=== PATIENT | male | born 1965 | race Caucasian/White ===

== ENCOUNTER 2018-04-30 10:59 | Inpatient (IN) | payer MEDICAID, OTHER ==
[~2018-04-30] VITALS: Ht 172.7 cm; Wt 67.6 kg
[2018-04-30 12:02] LABS: Basophils # (auto) 0 uL; Basophils % (auto) 0.9 % (0.0-2.0); Eosinophils # (auto) 0 uL; Hematocrit 43.6 % (41.0-53.0); Hemoglobin 14.6 g/dL (13.5-17.5); Lymphocytes # (auto) 0.6 uL; Lymphocytes % (auto) 18.4 % (10.0-50.0); Mean Corpuscular Hgb Conc. 33.6 g/dL (32.0-36.0); Mean Corpuscular Volume 89.3 fL (80.0-100.0); Monocytes # (auto) 0.3 uL; Monocytes % (auto) 7.4 % (0.0-12.0); Neutrophils # (auto) 2.5 uL; Neutrophils % (auto) 73.3 % (37.0-80.0); Nucleated Red Blood Cells % 0.1 %; Platelet Count (auto) 76 10^3/uL (140-450); Red Blood Cells 4.88 10^6/uL (4.5-5.90); Red Cell Distribution Width 13.5 % (11.8-14.3); White Blood Cell 3.5 10^3/uL (4.4-10.8)
[2018-04-30 12:34] LABS: Alanine Aminotransferase 61 U/L (16-61); Albumin 2.5 g/dL (3.4-5.0); Alkaline Phosphatase 62 U/L (45-117); Anion Gap 10 (5-15); Aspartate Aminotransferase 70 U/L (15-37); BUN/Creatinine Ratio 15.2; Blood Urea Nitrogen 17 mg/dL (7-18); Calcium 7.1 mg/dL (8.5-10.1); Carbon Dioxide 20 mmol/L (21-32); Chloride 99 mmol/L (98-107); GFR African American 88 mL/min; GFR Non-African American 73 mL/min; Glucose 86 mg/dL (74-106); Sodium 129 mmol/L (136-145); Total Protein 5.9 g/dL (6.4-8.2)
[2018-04-30 12:40] LABS: INR 1.1 (0.9-1.15); Partial Thromboplastin Time 30.6 sec (23.78-33.04); Prothrombin Time 11.7 sec (9.27-12.13)
[2018-04-30 12:43] LABS: Potassium 2.9 mmol/L (3.5-5.1)
[2018-04-30] MEDS ORDERED: POTASSIUM CHL 20 Meq TABLET PO ONE ×2 (13:00)
[2018-04-30] MEDS ORDERED: SODIUM CHLORIDE 0.9% 1,000 ML IV ONE (13:45)
[2018-04-30] MEDS ORDERED: MORPHINE SULFATE 4 MG/ML SYR/VIAL IV PRN (15:15)
[2018-04-30] MEDS ORDERED: LACTULOSE 20Gm/30ML SOLN PO PRN (15:15)
[2018-04-30] MEDS ORDERED: KETOROLAC TROMETH 30 MG/ML 1ML VIAL IV PRN (15:15)
[2018-04-30] MEDS ORDERED: ONDANSETRON HCL 4 MG/2 ML VIAL IV PRN (15:15)
[2018-04-30] MEDS ORDERED: LORazepam 0.5 MG TAB PO PRN (15:15)
[2018-04-30] MEDS ORDERED: LABETALOL HCL 5 MG/ML ML 20ML VIAL IV PRN (15:15)
[2018-04-30] MEDS ORDERED: NITROGLYCERIN 0.4 MG SL TAB SL PRN (15:15)
[2018-04-30] MEDS: SOD CHL 0.9%/ KCL 20MEQ 1,000 ML IV SCH (15:34)
[2018-04-30 16:36] LABS: Urine Bacteria NONE SEEN /hpf (None Seen); Urine Blood 2+ /uL (Negative); Urine Mucus FEW (None Seen); Urine WBC 2 /hpf (0 - 3)
[2018-04-30 16:48] VITALS: BP 115/59
[2018-04-30 16:59] LABS: Alcohol, Urine < 3.0 mg/dL (0-5); Amphetamine Screen, Urine POSITIVE (NEGATIVE); Barbiturate Scree,Urine NEGATIVE (NEGATIVE); Benzodiazephine Screen, Urine NEGATIVE (NEGATIVE); Cannabinoid Screen, Urine NEGATIVE (NEGATIVE); Cocaine Screen, Urine NEGATIVE (NEGATIVE); Opiate Scree,Urine NEGATIVE (NEGATIVE); Phencyclidine Screen, Urine NEGATIVE (NEGATIVE)
[2018-04-30 17:00] VITALS: BP 115/59
[2018-04-30] MEDS ORDERED: LORazepam 2MG/ML-1ML VIAL IV PRN (17:30)
[2018-04-30] MEDS: THIAMINE INJ 100 MG, MULTIPLE VITAMIN 10 ML, FOLIC ACID 1 MG, MAGNESIUM SULF SDV 50% 8 ... IV SCH ×5 (18:00)
[2018-04-30] MEDS: ACETAMINOPHEN 500 MG TAB PO PRN (21:18)
[2018-04-30 22:00] VITALS: BP 118/53
[2018-05-01] MEDS: SOD CHL 0.9%/ KCL 20MEQ 1,000 ML IV SCH ×2 (01:15→11:15)
[2018-05-01 04:58] VITALS: BP 111/53
[2018-05-01 06:25] LABS: Basophils # (auto) 0 uL; Eosinophils # (auto) 0 uL; Hematocrit 41.2 % (41.0-53.0); Hemoglobin 14.6 g/dL (13.5-17.5); Lymphocytes # (auto) 0.7 uL; Lymphocytes % (auto) 15.2 % (10.0-50.0); Mean Corpuscular Hemoglobin 30.8 pg (28.0-32.0); Mean Corpuscular Hgb Conc. 35.3 g/dL (32.0-36.0); Mean Corpuscular Volume 87.2 fL (80.0-100.0); Monocytes # (auto) 0.3 uL; Monocytes % (auto) 6.3 % (0.0-12.0); Neutrophils # (auto) 3.3 uL; Neutrophils % (auto) 77.5 % (37.0-80.0); Nucleated Red Blood Cells % 0.1 %; Platelet Count (auto) 68 10^3/uL (140-450); Red Blood Cells 4.72 10^6/uL (4.5-5.90); Red Cell Distribution Width 13.2 % (11.8-14.3); White Blood Cell 4.3 10^3/uL (4.4-10.8)
[2018-05-01 06:48] LABS: Albumin 2.5 g/dL (3.4-5.0); BUN/Creatinine Ratio 15.5; Bilirubin, Total 0.9 mg/dL (0.2-1.0); Calcium 7.4 mg/dL (8.5-10.1); Potassium 3.4 mmol/L (3.5-5.1); Total Protein 5.8 g/dL (6.4-8.2)
[2018-05-01 09:00] VITALS: BP 115/53
[2018-05-01] MEDS ORDERED: ENOXAPARIN SOD 40 MG/0.4 ML SYRINGE SC SCH (10:00)
[2018-05-01] MEDS ORDERED: POTASSIUM CHLORIDE 8 MEQ TAB PO ONE (10:15)
[2018-05-01] MEDS ORDERED: metroNIDAZOLE 500 MG TAB PO ONE (10:30)
[2018-05-01] MEDS ORDERED: IOHEXOL 350 MG/ML 100ML IJ ONE (11:49)
[2018-05-01 13:00] VITALS: BP 110/57
[2018-05-01] MEDS: ASPirin 81 mg TAB PO SCH (15:00)
[2018-05-01] MEDS: PANTOPRAZOLE 40 MG TAB PO SCH (15:00)
[2018-05-01 17:00] VITALS: BP 119/59
[2018-05-01] MEDS: THIAMINE INJ 100 MG, MULTIPLE VITAMIN 10 ML, FOLIC ACID 1 MG, MAGNESIUM SULF SDV 50% 8 ... IV SCH ×5 (19:51)
[2018-05-01] MEDS: metroNIDAZOLE 500 MG TAB PO SCH (21:04)
[2018-05-01 22:00] VITALS: BP 111/72
[2018-05-02] MEDS: SOD CHL 0.9%/ KCL 20MEQ 1,000 ML IV SCH ×3 (04:08→17:07)
[2018-05-02 05:29] VITALS: BP 114/54
[2018-05-02] MEDS: metroNIDAZOLE 500 MG TAB PO SCH (06:15)
[2018-05-02 07:28] LABS: Basophils # (auto) 0.1 uL; Basophils % (auto) 0.9 % (0.0-2.0); Eosinophils # (auto) 0 uL; Hematocrit 45.2 % (41.0-53.0); Hemoglobin 14.4 g/dL (13.5-17.5); Lymphocytes # (auto) 1.2 uL; Lymphocytes % (auto) 19.9 % (10.0-50.0); Mean Corpuscular Hemoglobin 29.7 pg (28.0-32.0); Mean Corpuscular Hgb Conc. 31.8 g/dL (32.0-36.0); Mean Corpuscular Volume 93.4 fL (80.0-100.0); Monocytes # (auto) 0.4 uL; Monocytes % (auto) 6.4 % (0.0-12.0); Neutrophils # (auto) 4.3 uL; Neutrophils % (auto) 72.8 % (37.0-80.0); Nucleated Red Blood Cells % 0.1 %; Platelet Count (auto) 61 10^3/uL (140-450); Red Blood Cells 4.84 10^6/uL (4.5-5.90); White Blood Cell 5.9 10^3/uL (4.4-10.8)
[2018-05-02 08:24] VITALS: BP 111/52
[2018-05-02] MEDS: MEPERIDINE HCL (25 MG/ML) 1ML VIAL IV PRN ×2 (09:00→12:35)
[2018-05-02] MEDS: ASPirin 81 mg TAB PO SCH (09:33)
[2018-05-02] MEDS: PANTOPRAZOLE 40 MG TAB PO SCH (09:33)
[2018-05-02 09:51] LABS: Albumin 2.1 g/dL (3.4-5.0); BUN/Creatinine Ratio 13.1; Potassium 3.4 mmol/L (3.5-5.1); Total Protein 5.4 g/dL (6.4-8.2)
[2018-05-02] MEDS: traMADol HCL 50 MG TAB PO PRN ×2 (10:00→16:10)
[2018-05-02 10:39] LABS: Hepatitis B Surface Antibody Negative
[2018-05-02 11:08] LABS: Hepatitis A Total Antibody Negative
[2018-05-02 11:40] LABS: Hepatitis A Ab IgM Negative
[2018-05-02 11:58] LABS: Hepatitis B Core Total AB Negative
[2018-05-02 12:08] VITALS: BP 125/77
[2018-05-02 12:18] LABS: Hepatitis B Core IgM Negative; Hepatitis B Surface Antigen Negative (Negative)
[2018-05-02] MEDS: MEPERIDINE HCL (50 MG/ML) 1 ML VIAL IV PRN ×3 (13:00→18:55)
[2018-05-02 16:25] VITALS: BP 100/65
[2018-05-02] MEDS: THIAMINE INJ 100 MG, MULTIPLE VITAMIN 10 ML, FOLIC ACID 1 MG, MAGNESIUM SULF SDV 50% 8 ... IV SCH ×5 (18:00)
[2018-05-02 21:47] VITALS: BP 140/60
[2018-05-03] MEDS: SOD CHL 0.9%/ KCL 20MEQ 1,000 ML IV SCH ×3 (03:57→23:15)
[2018-05-03 04:56] VITALS: BP 114/75
[2018-05-03 04:58] VITALS: BP 114/75
[2018-05-03 06:14] LABS: Basophils # (auto) 0 uL; Basophils % (auto) 0.7 % (0.0-2.0); Eosinophils # (auto) 0 uL; Eosinophils % (auto) 0.1 % (0.0-7.0); Hematocrit 43.5 % (41.0-53.0); Hemoglobin 14.9 g/dL (13.5-17.5); Lymphocytes % (auto) 17.4 % (10.0-50.0); Mean Corpuscular Hemoglobin 30.1 pg (28.0-32.0); Mean Corpuscular Hgb Conc. 34.3 g/dL (32.0-36.0); Mean Corpuscular Volume 87.8 fL (80.0-100.0); Monocytes # (auto) 0.4 uL; Monocytes % (auto) 7.5 % (0.0-12.0); Neutrophils # (auto) 4.3 uL; Neutrophils % (auto) 74.3 % (37.0-80.0); Nucleated Red Blood Cells % 0.4 %; Platelet Count (auto) 97 10^3/uL (140-450); Red Blood Cells 4.96 10^6/uL (4.5-5.90); Red Cell Distribution Width 13.4 % (11.8-14.3); White Blood Cell 5.8 10^3/uL (4.4-10.8)
[2018-05-03 06:35] LABS: Albumin 2.1 g/dL (3.4-5.0); BUN/Creatinine Ratio 17.9; Calcium 6.9 mg/dL (8.5-10.1); Potassium 3.3 mmol/L (3.5-5.1)
[2018-05-03 06:46] LABS: Total Protein 5.3 g/dL (6.4-8.2)
[2018-05-03] MEDS: MEPERIDINE HCL (50 MG/ML) 1 ML VIAL IV PRN ×2 (07:28→10:10)
[2018-05-03 07:58] VITALS: BP 108/65
[2018-05-03] MEDS: ASPirin 81 mg TAB PO SCH (09:35)
[2018-05-03] MEDS: PANTOPRAZOLE 40 MG TAB PO SCH (09:35)
[2018-05-03] MEDS: traMADol HCL 50 MG TAB PO PRN ×2 (09:35→13:53)
[2018-05-03] MEDS ORDERED: VANCOMYCIN PER PHARMACY 0 MG IV SCH (10:30)
[2018-05-03 12:13] VITALS: BP 114/58
[2018-05-03] MEDS: VANCOMYCIN 1GM/250ML 250 ML IV SCH ×2 (13:27→23:11)
[2018-05-03] MEDS: cefTRIAXone 1GM/10ml IVPUSH 10 ML IV SCH (13:27)
[2018-05-03] MEDS: metroNIDAZOLE 500MG/100ML 100 ML IV SCH ×2 (14:17→21:25)
[2018-05-03] MEDS ORDERED: MORPHINE SULFATE 4 MG/ML SYR/VIAL IV PRN (14:30)
[2018-05-03 17:00] VITALS: BP 101/60
[2018-05-03 18:00] VITALS: BP 113/68
[2018-05-03] MEDS: THIAMINE INJ 100 MG, MULTIPLE VITAMIN 10 ML, FOLIC ACID 1 MG, MAGNESIUM SULF SDV 50% 8 ... IV SCH ×5 (18:00)
[2018-05-03] MEDS ORDERED: CARISOPRODOL 350 MG TAB PO SCH (22:00)
[2018-05-04 04:36] VITALS: BP 119/67
[2018-05-04] MEDS: metroNIDAZOLE 500MG/100ML 100 ML IV SCH ×3 (05:31→21:29)
[2018-05-04 06:35] LABS: Basophils # (auto) 0 uL; Basophils % (auto) 0.9 % (0.0-2.0); Eosinophils # (auto) 0 uL; Eosinophils % (auto) 0.3 % (0.0-7.0); Hematocrit 40.9 % (41.0-53.0); Hemoglobin 14.1 g/dL (13.5-17.5); Lymphocytes # (auto) 0.9 uL; Lymphocytes % (auto) 16.3 % (10.0-50.0); Mean Corpuscular Hemoglobin 30.2 pg (28.0-32.0); Mean Corpuscular Hgb Conc. 34.4 g/dL (32.0-36.0); Mean Corpuscular Volume 87.7 fL (80.0-100.0); Monocytes # (auto) 0.4 uL; Monocytes % (auto) 7.8 % (0.0-12.0); Neutrophils # (auto) 3.9 uL; Neutrophils % (auto) 74.7 % (37.0-80.0); Nucleated Red Blood Cells % 0.1 %; Platelet Count (auto) 118 10^3/uL (140-450); Red Blood Cells 4.67 10^6/uL (4.5-5.90); Red Cell Distribution Width 13.6 % (11.8-14.3); White Blood Cell 5.3 10^3/uL (4.4-10.8)
[2018-05-04 07:03] LABS: Albumin 1.9 g/dL (3.4-5.0); BUN/Creatinine Ratio 19.1; Bilirubin, Total 0.9 mg/dL (0.2-1.0); Calcium 6.6 mg/dL (8.5-10.1); Potassium 3.2 mmol/L (3.5-5.1); Total Protein 5.1 g/dL (6.4-8.2)
[2018-05-04] MEDS: MEPERIDINE HCL (50 MG/ML) 1 ML VIAL IV PRN ×6 (07:35→18:27)
[2018-05-04 08:00] VITALS: BP 96/39
[2018-05-04] MEDS: CARISOPRODOL 350 MG TAB PO PRN ×2 (08:18→16:01)
[2018-05-04] MEDS ORDERED: POTASSIUM CHL 20 Meq TABLET PO ONE (09:00)
[2018-05-04] MEDS: ASPirin 81 mg TAB PO SCH (09:50)
[2018-05-04] MEDS: PANTOPRAZOLE 40 MG TAB PO SCH (09:50)
[2018-05-04] MEDS: cefTRIAXone 1GM/10ml IVPUSH 10 ML IV SCH (09:54)
[2018-05-04] MEDS: VANCOMYCIN 1GM/250ML 250 ML IV SCH (12:00)
[2018-05-04] MEDS: SODIUM CHLORIDE 0.9% 1,000 ML IV SCH ×2 (12:30→20:30)
[2018-05-04 13:00] VITALS: BP 107/57
[2018-05-04] MEDS: traMADol HCL 50 MG TAB PO PRN (13:10)
[2018-05-04 17:00] VITALS: BP 112/61
[2018-05-04] MEDS: POTASSIUM CHL 20 Meq TABLET PO SCH (21:30)
[2018-05-04 22:00] VITALS: BP 99/69
[2018-05-05] MEDS: VANCOMYCIN 1GM/250ML 250 ML IV SCH
[2018-05-05 05:00] VITALS: BP 93/58
[2018-05-05] MEDS: metroNIDAZOLE 500MG/100ML 100 ML IV SCH ×3 (05:47→22:08)
[2018-05-05] MEDS: SODIUM CHLORIDE 0.9% 1,000 ML IV SCH ×3 (05:47→20:26)
[2018-05-05 06:19] LABS: INR 1.2 (0.9-1.15); Partial Thromboplastin Time 32.4 sec (23.78-33.04); Prothrombin Time 12.7 sec (9.27-12.13)
[2018-05-05 06:21] LABS: Basophils # (auto) 0.1 uL; Basophils % (auto) 1.1 % (0.0-2.0); Eosinophils # (auto) 0 uL; Eosinophils % (auto) 0.3 % (0.0-7.0); Hemoglobin 13.3 g/dL (13.5-17.5); Lymphocytes # (auto) 1.2 uL; Lymphocytes % (auto) 22.7 % (10.0-50.0); Mean Corpuscular Hemoglobin 30.5 pg (28.0-32.0); Mean Corpuscular Hgb Conc. 35.1 g/dL (32.0-36.0); Mean Corpuscular Volume 86.9 fL (80.0-100.0); Monocytes # (auto) 0.4 uL; Monocytes % (auto) 7.7 % (0.0-12.0); Neutrophils # (auto) 3.5 uL; Neutrophils % (auto) 68.2 % (37.0-80.0); Nucleated Red Blood Cells % 0.1 %; Platelet Count (auto) 131 10^3/uL (140-450); Red Blood Cells 4.38 10^6/uL (4.5-5.90); Red Cell Distribution Width 13.7 % (11.8-14.3); White Blood Cell 5.1 10^3/uL (4.4-10.8)
[2018-05-05 06:27] LABS: Potassium 3.3 mmol/L (3.5-5.1)
[2018-05-05 06:31] LABS: Albumin 1.8 g/dL (3.4-5.0); BUN/Creatinine Ratio 14.5; Calcium 6.6 mg/dL (8.5-10.1)
[2018-05-05 06:33] LABS: Bilirubin, Total 0.9 mg/dL (0.2-1.0); Total Protein 4.8 g/dL (6.4-8.2)
[2018-05-05] MEDS: ASPirin 81 mg TAB PO SCH (08:25)
[2018-05-05] MEDS: ACETAMINOPHEN 500 MG TAB PO PRN (08:25)
[2018-05-05] MEDS: PANTOPRAZOLE 40 MG TAB PO SCH (08:25)
[2018-05-05] MEDS: POTASSIUM CHL 20 Meq TABLET PO SCH ×2 (08:25→22:08)
[2018-05-05] MEDS: cefTRIAXone 1GM/10ml IVPUSH 10 ML IV SCH (08:25)
[2018-05-05] MEDS: FOLIC ACID 1 MG TAB PO SCH (08:25)
[2018-05-05 08:55] VITALS: BP 92/47
[2018-05-05] MEDS ORDERED: MIDAZOLAM HCL 1MG/1ML-2 ML VIAL IV ONE (09:15)
[2018-05-05 13:00] VITALS: BP 102/65
[2018-05-05] MEDS ORDERED: IBUPROFEN 400 MG TAB PO ONE (14:15)
[2018-05-05] MEDS ORDERED: IBUPROFEN 400 MG TAB PO PRN (14:15)
[2018-05-05 17:53] VITALS: BP 92/54
[2018-05-05] MEDS ORDERED: chlordiazePOXIDE HCL 5 MG CAP PO PRN (19:00)
[2018-05-05] MEDS ORDERED: METOPROLOL TARTRATE 25 MG TAB PO ONE (19:00)
[2018-05-05] MEDS ORDERED: LEVOFLOXACIN 500MG 100 ML IV ONE (19:30)
[2018-05-05] MEDS ORDERED: METOPROLOL TARTRATE 50 MG TAB PO ONE (19:45)
[2018-05-05 20:01] LABS: Magnesium 2.3 mg/dL (1.6-2.6); Potassium 3.1 mmol/L (3.5-5.1)
[2018-05-05 21:36] VITALS: BP 102/61
[2018-05-05] MEDS ORDERED: METOPROLOL TARTRATE 25 MG TAB PO SCH (22:00)
[2018-05-05] MEDS: METOPROLOL TARTRATE 25 MG TAB PO SCH (22:00)
[2018-05-06 04:31] VITALS: BP 98/59
[2018-05-06] MEDS: SODIUM CHLORIDE 0.9% 1,000 ML IV SCH ×3 (05:32→21:06)
[2018-05-06 06:18] LABS: Basophils # (auto) 0.1 uL; Basophils % (auto) 0.9 % (0.0-2.0); Eosinophils # (auto) 0.1 uL; Eosinophils % (auto) 1.1 % (0.0-7.0); Hematocrit 37.4 % (41.0-53.0); Lymphocytes # (auto) 1.2 uL; Lymphocytes % (auto) 22.7 % (10.0-50.0); Mean Corpuscular Hemoglobin 30.4 pg (28.0-32.0); Mean Corpuscular Hgb Conc. 34.9 g/dL (32.0-36.0); Mean Corpuscular Volume 87.1 fL (80.0-100.0); Monocytes # (auto) 0.4 uL; Monocytes % (auto) 7.4 % (0.0-12.0); Neutrophils # (auto) 3.7 uL; Neutrophils % (auto) 67.9 % (37.0-80.0); Nucleated Red Blood Cells % 0.1 %; Platelet Count (auto) 143 10^3/uL (140-450); Red Blood Cells 4.29 10^6/uL (4.5-5.90); Red Cell Distribution Width 13.9 % (11.8-14.3); White Blood Cell 5.4 10^3/uL (4.4-10.8)
[2018-05-06 06:48] LABS: Albumin 1.9 g/dL (3.4-5.0); BUN/Creatinine Ratio 21.8; Bilirubin, Total 0.9 mg/dL (0.2-1.0); Calcium 7.1 mg/dL (8.5-10.1); Potassium 3.3 mmol/L (3.5-5.1); Total Protein 4.9 g/dL (6.4-8.2)
[2018-05-06] MEDS: metroNIDAZOLE 500MG/100ML 100 ML IV SCH (06:53)
[2018-05-06 08:00] VITALS: BP 96/59
[2018-05-06] MEDS: FOLIC ACID 1 MG TAB PO SCH (08:29)
[2018-05-06] MEDS: PANTOPRAZOLE 40 MG TAB PO SCH (08:29)
[2018-05-06] MEDS: POTASSIUM CHL 20 Meq TABLET PO SCH ×3 (08:29→23:19)
[2018-05-06] MEDS: THIAMINE HCL 100 MG TAB PO SCH (08:29)
[2018-05-06] MEDS: Ensure Enlive Strawberry 8oz Bottle PO SCH ×6 (08:30→18:42)
[2018-05-06] MEDS ORDERED: MEPERIDINE HCL (50 MG/ML) 1 ML VIAL IV PRN (09:45)
[2018-05-06] MEDS: METOPROLOL TARTRATE 25 MG TAB PO SCH ×2 (10:00→23:34)
[2018-05-06] MEDS ORDERED: LEVOFLOXACIN 500MG 100 ML IV SCH (10:00)
[2018-05-06] MEDS ORDERED: DOXYCYCLINE 100MG/250ML 250 ML IV SCH (10:15)
[2018-05-06] MEDS ORDERED: LIDOCAINE 2% (LOCAL ANESTH.) PF 5ml SDV ONE (10:42)
[2018-05-06 11:55] VITALS: BP 111/63
[2018-05-06 16:57] VITALS: BP 124/71
[2018-05-06] MEDS: ACETAMINOPHEN 500 MG TAB PO PRN (21:07)
[2018-05-06 22:06] VITALS: BP 106/56
[2018-05-06] MEDS: TEMAZEPAM 15 MG CAP PO PRN (23:20)
[2018-05-07 05:00] VITALS: BP 108/61
[2018-05-07] MEDS: DOXYCYCLINE 100MG/250ML 250 ML IV SCH ×2 (05:48→18:14)
[2018-05-07] MEDS: SODIUM CHLORIDE 0.9% 1,000 ML IV SCH ×3 (05:48→21:50)
[2018-05-07 06:05] LABS: Basophils # (auto) 0.1 uL; Basophils % (auto) 1.1 % (0.0-2.0); Eosinophils # (auto) 0 uL; Eosinophils % (auto) 0.6 % (0.0-7.0); Hematocrit 40.4 % (41.0-53.0); Hemoglobin 14.1 g/dL (13.5-17.5); Lymphocytes # (auto) 2.1 uL; Lymphocytes % (auto) 29.5 % (10.0-50.0); Mean Corpuscular Hemoglobin 30.5 pg (28.0-32.0); Mean Corpuscular Hgb Conc. 34.8 g/dL (32.0-36.0); Mean Corpuscular Volume 87.6 fL (80.0-100.0); Monocytes # (auto) 0.5 uL; Monocytes % (auto) 7.7 % (0.0-12.0); Neutrophils # (auto) 4.3 uL; Neutrophils % (auto) 61.1 % (37.0-80.0); Nucleated Red Blood Cells % 0.1 %; Platelet Count (auto) 195 10^3/uL (140-450); Red Blood Cells 4.62 10^6/uL (4.5-5.90); Red Cell Distribution Width 13.7 % (11.8-14.3)
[2018-05-07 06:17] LABS: Albumin 2.1 g/dL (3.4-5.0); BUN/Creatinine Ratio 10.1; Bilirubin, Total 1.2 mg/dL (0.2-1.0); Calcium 7.4 mg/dL (8.5-10.1); Total Protein 5.6 g/dL (6.4-8.2)
[2018-05-07] MEDS: Ensure Enlive Strawberry 8oz Bottle PO SCH ×3 (08:44→18:14)
[2018-05-07 09:00] VITALS: BP 98/49
[2018-05-07] MEDS: METOPROLOL TARTRATE 25 MG TAB PO SCH ×2 (10:00→21:49)
[2018-05-07] MEDS: FOLIC ACID 1 MG TAB PO SCH (11:34)
[2018-05-07] MEDS: POTASSIUM CHL 20 Meq TABLET PO SCH (11:34)
[2018-05-07] MEDS: THIAMINE HCL 100 MG TAB PO SCH (11:34)
[2018-05-07] MEDS: PANTOPRAZOLE 40 MG TAB PO SCH (11:34)
[2018-05-07 12:35] VITALS: BP 118/76
[2018-05-07 17:00] VITALS: BP 109/65
[2018-05-07] MEDS: TEMAZEPAM 15 MG CAP PO PRN (21:49)
[2018-05-07 22:00] VITALS: BP 121/65
[2018-05-08] MEDS: SODIUM CHLORIDE 0.9% 1,000 ML IV SCH ×3 (04:30→20:30)
[2018-05-08 05:00] VITALS: BP 123/70
[2018-05-08] MEDS: DOXYCYCLINE 100MG/250ML 250 ML IV SCH ×2 (06:00→18:20)
[2018-05-08 06:58] LABS: Albumin 2.1 g/dL (3.4-5.0); BUN/Creatinine Ratio 13.6; Calcium 7.5 mg/dL (8.5-10.1); Potassium 4.1 mmol/L (3.5-5.1)
[2018-05-08 07:00] LABS: Bilirubin, Total 0.9 mg/dL (0.2-1.0)
[2018-05-08 08:00] LABS: Hematocrit 40.7 % (41.0-53.0); Hemoglobin 13.9 g/dL (13.5-17.5); Mean Corpuscular Hemoglobin 29.8 pg (28.0-32.0); Mean Corpuscular Hgb Conc. 34.1 g/dL (32.0-36.0); Mean Corpuscular Volume 87.5 fL (80.0-100.0); Platelet Count (auto) 201 10^3/uL (140-450); Red Blood Cells 4.65 10^6/uL (4.5-5.90); Red Cell Distribution Width 14.2 % (11.8-14.3); White Blood Cell 6.8 10^3/uL (4.4-10.8)
[2018-05-08 08:01] LABS: Basophils % (manual) 0 (0.0-2.0); Blast Cells 0; Metamyelocytes % 0; Myelocytes % 0; Promyelocytes % 0
[2018-05-08 08:06] LABS: Immunoglobulin G, Serum 970 mg/dL (700-1600)
[2018-05-08] MEDS: Ensure Enlive Strawberry 8oz Bottle PO SCH ×3 (08:18→18:20)
[2018-05-08 09:00] VITALS: BP 107/71
[2018-05-08] MEDS: METOPROLOL TARTRATE 25 MG TAB PO SCH ×2 (10:00→22:40)
[2018-05-08 11:14] LABS: Band Neutrophils % (manual) 2; Eosinophils % (manual) 1 (0-7); Monocytes % (manual) 7 (0-12); Reactive Lymphocytes 2
[2018-05-08 11:15] LABS: Lymphocytes % (manual) 24 (10.0-50.0)
[2018-05-08] MEDS: POTASSIUM CHL 20 Meq TABLET PO SCH (11:32)
[2018-05-08] MEDS: FOLIC ACID 1 MG TAB PO SCH (11:32)
[2018-05-08] MEDS: THIAMINE HCL 100 MG TAB PO SCH (11:33)
[2018-05-08] MEDS: PANTOPRAZOLE 40 MG TAB PO SCH (11:33)
[2018-05-08 12:42] VITALS: BP 102/61
[2018-05-08 17:00] VITALS: BP 109/62
[2018-05-08 22:00] VITALS: BP 88/65
[2018-05-08] MEDS: TEMAZEPAM 15 MG CAP PO PRN (22:40)
[2018-05-09] MEDS: SODIUM CHLORIDE 0.9% 1,000 ML IV SCH (04:39)
[2018-05-09 05:00] VITALS: BP 111/66
[2018-05-09 05:54] LABS: Basophils # (auto) 0.1 uL; Basophils % (auto) 1.1 % (0.0-2.0); Eosinophils # (auto) 0.1 uL; Eosinophils % (auto) 0.9 % (0.0-7.0); Hemoglobin 14.5 g/dL (13.5-17.5); Lymphocytes # (auto) 3.6 uL; Lymphocytes % (auto) 41.2 % (10.0-50.0); Mean Corpuscular Hemoglobin 30.6 pg (28.0-32.0); Mean Corpuscular Hgb Conc. 34.5 g/dL (32.0-36.0); Mean Corpuscular Volume 88.5 fL (80.0-100.0); Monocytes # (auto) 0.7 uL; Monocytes % (auto) 8.3 % (0.0-12.0); Neutrophils # (auto) 4.2 uL; Neutrophils % (auto) 48.5 % (37.0-80.0); Nucleated Red Blood Cells % 0.3 %; Platelet Count (auto) 222 10^3/uL (140-450); Red Blood Cells 4.74 10^6/uL (4.5-5.90); Red Cell Distribution Width 14.5 % (11.8-14.3); White Blood Cell 8.7 10^3/uL (4.4-10.8)
[2018-05-09 06:03] LABS: Albumin 2.2 g/dL (3.4-5.0); BUN/Creatinine Ratio 16.7; Calcium 7.7 mg/dL (8.5-10.1); Potassium 4.7 mmol/L (3.5-5.1)
[2018-05-09] MEDS: DOXYCYCLINE 100MG/250ML 250 ML IV SCH ×2 (06:04→18:05)
[2018-05-09 06:16] LABS: Bilirubin, Total 0.8 mg/dL (0.2-1.0); Total Protein 6.4 g/dL (6.4-8.2)
[2018-05-09 08:08] VITALS: BP 106/72
[2018-05-09] MEDS: METOPROLOL TARTRATE 25 MG TAB PO SCH ×2 (10:00→22:00)
[2018-05-09] MEDS: POTASSIUM CHL 20 Meq TABLET PO SCH (10:00)
[2018-05-09] MEDS: PANTOPRAZOLE 40 MG TAB PO SCH (10:26)
[2018-05-09] MEDS: THIAMINE HCL 100 MG TAB PO SCH (10:26)
[2018-05-09] MEDS: FOLIC ACID 1 MG TAB PO SCH (10:26)
[2018-05-09] MEDS: Ensure Enlive Strawberry 8oz Bottle PO SCH ×3 (10:28→18:05)
[2018-05-09 13:43] VITALS: BP 97/59
[2018-05-09 16:47] VITALS: BP 99/70
[2018-05-09 20:00] VITALS: BP 88/65
[2018-05-09] MEDS: traMADol HCL 50 MG TAB PO PRN (21:44)
[2018-05-09] MEDS: TEMAZEPAM 15 MG CAP PO PRN (21:44)
[2018-05-09 22:00] VITALS: BP 101/56
[2018-05-10 05:00] VITALS: BP 95/54
[2018-05-10] MEDS: DOXYCYCLINE 100MG/250ML 250 ML IV SCH (05:26)
[2018-05-10 07:54] VITALS: BP 106/62
[2018-05-10] MEDS: FOLIC ACID 1 MG TAB PO SCH (09:19)
[2018-05-10] MEDS: METOPROLOL TARTRATE 25 MG TAB PO SCH (09:20)
[2018-05-10] MEDS: PANTOPRAZOLE 40 MG TAB PO SCH (09:29)
[2018-05-10] MEDS: Ensure Enlive Strawberry 8oz Bottle PO SCH ×2 (09:30→12:02)
[2018-05-10] MEDS: THIAMINE HCL 100 MG TAB PO SCH (10:06)
[2018-05-10 13:20] VITALS: BP 106/64
[2018-05-10] MEDS ORDERED: DOXY-216 PO (14:32)
[2018-05-10] MEDS ORDERED: MET25T PO (14:32)
== END 2018-05-10 16:14 | disposition home or self-care (01) | DRG 463 ==
LOC: EDBD 10:59 → ER 11:02 → TELE 11:03 → TELE-EAST 16:38 → EAST 05-09 12:40
PROVIDERS: ADMIT Internal Medicine; ATTEND Internal Medicine
PROC: B246ZZ4 Ultrasonography of Right and Left Heart, Transesophageal (ICD-10-PCS; principal; 2018-05-05)
DX: N12 Tubulo-interstitial nephritis, not specified as acute or chronic (principal); E43 Unspecified severe protein-calorie malnutrition; K85.10 Biliary acute pancreatitis without necrosis or infection; J18.9 Pneumonia, unspecified organism; D69.6 Thrombocytopenia, unspecified; I48.91 Unspecified atrial fibrillation; E87.1 Hypo-osmolality and hyponatremia; L03.114 Cellulitis of left upper limb; K52.9 Noninfective gastroenteritis and colitis, unspecified; E86.0 Dehydration; R55 Syncope and collapse; E87.6 Hypokalemia; F17.210 Nicotine dependence, cigarettes, uncomplicated; B95.61 Methicillin susceptible Staphylococcus aureus infection as the cause of diseases classified elsewhere; E78.5 Hyperlipidemia, unspecified; B34.9 Viral infection, unspecified; D72.819 Decreased white blood cell count, unspecified; Z59.0 Homelessness; Z68.22 Body mass index [BMI] 22.0-22.9, adult
CPT/HCPCS: 36415; 70450; 70551; 71045; 71046; 71275; 74176; 76775; 80053; 80061; 80202; 80307; 81001; 82550; 82607; 82784; 83540; 83550; 83735; 83880; 84132; 84443; 84484; 85007; 85025; 85027; 85048; 85379; 85610; 85652; 85730; 86703; 86704; 86705; 86706; 86708; 86709; 86803; 86850; 86900; 86901; 87040; 87086; 87088; 87186; 87340; 87493; 93005; 93306; 93312; 93971; 95819; 96361; 96365; 99152; A6257; J0696; J1885; J1956; J2001; J2250; J3490